=== PATIENT | male | born 1990 | race Caucasian/White ===

== ENCOUNTER 2016-05-15 14:31 | Emergency (ER) | payer SELFPAY ==
[~2016-05-15] VITALS: Ht 180.3 cm; Wt 84.1 kg
[2016-05-15] MEDS ORDERED: LIDOCAINE HCL 2% 5 ML JELLY TP ONE (16:00)
[2016-05-15] MEDS ORDERED: HYDROCODONE/ACETAMINOPHEN 5-325 MG TABLET PO ONE (16:00)
[2016-05-15 16:53] VITALS: BP 119/76
== END 2016-05-15 17:18 | disposition home or self-care (01) ==
LOC: EMS 14:44
DX: N47.2 Paraphimosis (principal)
CPT/HCPCS: 99283